=== PATIENT | female | born 1970 | race Two or more races ===

== ENCOUNTER 2016-05-29 05:38 | Day surgery (SDC) | payer BC ==
[~2016-05-29] VITALS: Ht 157.5 cm; Wt 67.9 kg
[2016-05-29 06:38] VITALS: Ht 157.5 cm; Wt 67.9 kg
[2016-05-29 06:51] VITALS: BP 115/67; PULSE 56; RESP 12
[2016-05-29] MEDS ORDERED: FENTAnyl 50 MCG/ML VIAL ONE (07:41)
[2016-05-29] MEDS ORDERED: MIDAZOLAM 1 MG/ML 2 ML INJ ONE ×2 (07:42)
[2016-05-29 07:58] VITALS: BP 94/62; PULSE 52; RESP 18
--- NOTE | 2016-05-29 08:02 | GILP ---
DATE OF PROCEDURE: NAME OF PROCEDURE: Esophagogastroduodenoscopy and biopsy. SURGEON: Gracie Solorzano MD PREOPERATIVE DIAGNOSIS: Chronic heartburn. POSTOPERATIVE DIAGNOSES: 1. Hiatal hernia. 2. Gastroesophageal reflux disease. 3. Gastritis with erosions. 4. Gastric polyps on the antrum, and biopsies were taken for histopathology. INDICATION FOR THE PROCEDURE: Ms. Gypsy Ayoub is a 45-year-old female patient who had chronic heartb urn, not responding to therapy. The patient was scheduled for endoscopic examination for further ev aluation. The procedure and possible complications were well explained to the patient, she understood and cons ented to the procedure. DESCRIPTION OF PROCEDURE: Under the influence of fentanyl and Versed, the gastroscope was carefully introduced into the esophagus, and under direct vision it was advanced to the stomach and through t he pylorus into the duodenal bulb and descending duodenum. FINDINGS: ESOPHAGUS: The patient had a hiatal hernia and gastroesophageal reflux disease. STOMACH: She had gastritis with erosions. The patient also had a polyp on the gastric antrum and b iopsies were taken for histopathology. DUODENUM: Normal. She tolerated the procedure very well and there were no complications from the procedure. At the en d of the procedure she was awake with stable vital signs, and she was discharged home to the care of her family. IMPRESSION: 1. Hiatal hernia. 2. Gastroesophageal reflux disease. 3. Gastric polyp on the antrum, and biopsies were taken for histopathology. 4. Gastritis with erosions. PLAN: 1. Nexium 24 hours p.o. q.a.m. 2. Await histopathology report. Dictated By: GRACIE BEEBE/KOLTON Conf#: [id number] DID#: [id number]
== END 2016-05-29 09:19 | disposition home or self-care (01) ==
LOC: GIL 05:38
PROVIDERS: ATTEND Internal Medicine Gastroenterology
DX: K29.50 Unspecified chronic gastritis without bleeding (principal); K21.9 Gastro-esophageal reflux disease without esophagitis; K29.60 Other gastritis without bleeding
CPT/HCPCS: 43239; 88305; 88312; J2250; J3010; Z7610